=== PATIENT | male | born 2000 | race Hispanic/Latino ===

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

== ENCOUNTER 2021-02-03 22:55 | Emergency (ER) | payer MEDICAID ==
[2021-02-03 22:59] VITALS: BP 151/90
== END 2021-02-04 02:00 | disposition left against medical advice (07) ==
LOC: ED 22:55
DX: R51.9 Headache, unspecified (principal); Z53.21 Procedure and treatment not carried out due to patient leaving prior to being seen by health care provider